=== PATIENT | male | born 2005 | race Caucasian/White ===

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

== ENCOUNTER 2023-07-14 13:23 | Emergency (ER) | payer OTHER ==
[~2023-07-14] VITALS: Ht 195.6 cm; Wt 97.0 kg
[2023-07-14] MEDS ORDERED: [UNRECOGNIZED DRUG - CODE] PO (14:01)
[2023-07-14] MEDS: KETOROLAC 30 MG/ML 1ML VIAL IV ONE (18:53)
[2023-07-14] MEDS ORDERED: ISOVUE-370 76% 100ML VIAL As Ordered ONE (18:57)
[2023-07-14 19:03] LABS: BASO # 0.1 10^3/uL (0.0-0.2); BASO % 0.5 % (0.0-1.0); EOS # 0.5 10^3/uL (0.0-0.5); EOS % 3.6 % (0.0-3.0); HEMATOCRIT 41.8 % (42.0-52.0); HEMOGLOBIN 14.3 g/dl (13.5-17.5); LYMPH # 2.6 10^3/uL (1.5-5.0); LYMPH % 17.9 % (24.0-44.0); MEAN CORPUSCULAR HEMOGLOBIN 30.2 pg (27.0-33.0); MEAN CORPUSCULAR HGB CONC 34.2 g/dl (32.0-36.5); MEAN CORPUSCULAR VOLUME 88.4 fl (80.0-96.0); MONO # 1.1 10^3/uL (0.0-0.8); MONO % 7.6 % (2.0-8.0); NEUTROPHILS # 10.2 10^3/uL (1.5-8.5); NEUTROPHILS % 70.1 % (36.0-66.0); PLATELET COUNT, AUTOMATED 289 10^3/uL (150-450); RED BLOOD COUNT 4.73 10^6/uL (4.30-6.10); WHITE BLOOD COUNT 14.6 10^3/uL (4.0-10.0)
[2023-07-14] MEDS ORDERED: AMOX875T2 PO (20:06)
[2023-07-14] MEDS ORDERED: IBUP-1022 PO (20:06)
[2023-07-14] MEDS: AUGMENTIN 875 MG TAB PO ONE (20:12)
[2023-07-14 20:19] VITALS: BP 123/57; TEMP 98.8; O2SAT 99
== END 2023-07-14 20:20 | disposition home or self-care (01) ==
LOC: M ED 13:23
DX: L04.0 Acute lymphadenitis of face, head and neck (principal); G40.909 Epilepsy, unspecified, not intractable, without status epilepticus; Z87.891 Personal history of nicotine dependence; Z79.2 Long term (current) use of antibiotics; Z79.1 Long term (current) use of non-steroidal anti-inflammatories (NSAID)
CPT/HCPCS: 70491; 80047; 85025; 87486; 87581; 87633; 87798; 87880; 96374; 99284; J1885; Q9967